=== PATIENT | male | born 1990 | race Caucasian/White ===

== ENCOUNTER 2019-12-23 00:07 | Emergency (ER) | payer OTHER ==
[2019-12-23 00:13] VITALS: BMI 25.0
[2019-12-23 00:28] VITALS: BP 121/82; PULSE 77; TEMP 99.1
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
== END 2019-12-23 00:43 | disposition home or self-care (01) ==
LOC: FER 00:07
DX: S60.414A Abrasion of right ring finger, initial encounter (principal)
CPT/HCPCS: 99282-25

== ENCOUNTER 2021-04-11 14:30 | Emergency (ER) | payer OTHER ==
[2021-04-11] MEDS ORDERED: IBUPROFEN 600 MG TABLET (FP) PO ONE ×2 (15:13→15:28)
[2021-04-11 15:40] VITALS: BP 130/83; PULSE 83; TEMP 98.1; BMI 26.6
== END 2021-04-11 16:47 | disposition home or self-care (01) ==
LOC: FER 14:30
DX: S62.525A Nondisplaced fracture of distal phalanx of left thumb, initial encounter for closed fracture (principal); Y35.811A Legal intervention involving manhandling, law enforcement official injured, initial encounter
CPT/HCPCS: 73140-TC-LT-FY; 99283-25

== ENCOUNTER 2021-05-15 15:18 | Emergency (ER) | payer OTHER ==
[2021-05-15 15:27] VITALS: BP 132/85; PULSE 98; TEMP 99; BMI 26.6
== END 2021-05-15 16:07 | disposition home or self-care (01) ==
LOC: FER 15:18
DX: S80.211A Abrasion, right knee, initial encounter (principal); S80.212A Abrasion, left knee, initial encounter; S60.511A Abrasion of right hand, initial encounter; S60.212A Contusion of left wrist, initial encounter; W01.0XXA Fall on same level from slipping, tripping and stumbling without subsequent striking against object, initial encounter; Y35.891A Legal intervention involving other specified means, law enforcement official injured, initial encounter
CPT/HCPCS: 99281-25

== ENCOUNTER 2021-08-28 15:40 | Emergency (ER) | payer OTHER ==
[2021-08-28 16:03] VITALS: BMI 26.6
[2021-08-28] MEDS ORDERED: NAPROXEN 500 MG TABLET PO ONE (16:59)
[2021-08-28] MEDS ORDERED: NAPROXEN 500 MG TABLET ONE (17:05)
[2021-08-28 18:45] VITALS: BP 116/74; PULSE 72; TEMP 98.1
[2021-08-28 19:19] LABS: HIV INTERPRETATION NEGATIVE (NEGATIVE)
== END 2021-08-28 18:48 | disposition home or self-care (01) ==
LOC: FER 15:40
DX: S50.811A Abrasion of right forearm, initial encounter (principal); S50.812A Abrasion of left forearm, initial encounter; M25.511 Pain in right shoulder; Y04.8XXA Assault by other bodily force, initial encounter
CPT/HCPCS: 36415; 73030-TC-RT-FY; 87389; 99284-25

== ENCOUNTER 2022-03-19 14:35 | Emergency (ER) | payer OTHER ==
[2022-03-19 14:54] VITALS: BP 120/76; PULSE 72; RESP 18; TEMP 98; BMI 27.0
== END 2022-03-19 16:05 | disposition home or self-care (01) ==
LOC: FER 14:35
DX: M25.562 Pain in left knee (principal)
CPT/HCPCS: 99283-25

== ENCOUNTER 2022-04-02 14:10 | Emergency (ER) | payer OTHER ==
[2022-04-02 14:26] VITALS: BP 121/83; PULSE 83; RESP 18; TEMP 97.8; BMI 27.0
[2022-04-02] MEDS ORDERED: ACETAMINOPHEN 325 MG TABLET (FP) PO ONE (14:52)
[2022-04-02] MEDS ORDERED: ACETAMINOPHEN 325 MG TABLET (FP) ONE (14:57)
== END 2022-04-02 16:05 | disposition home or self-care (01) ==
LOC: FER 14:10
DX: S96.911A Strain of unspecified muscle and tendon at ankle and foot level, right foot, initial encounter (principal); M25.511 Pain in right shoulder; M79.642 Pain in left hand; Y30.XXXA Falling, jumping or pushed from a high place, undetermined intent, initial encounter
CPT/HCPCS: 73030-TC-RT-FY; 99283-25

== ENCOUNTER 2023-02-09 19:02 | Emergency (ER) | payer OTHER ==
[2023-02-09 19:07] VITALS: BP 135/83; PULSE 85; RESP 18; TEMP 98.1; BMI 25.8
[2023-02-09] MEDS ORDERED: BACITRACIN 0.9 GM PACKET TP ONE (19:38)
[2023-02-09] MEDS ORDERED: BACITRACIN ZINC 15 GM TUBE TOPICAL OINTMENT ONE (19:38)
== END 2023-02-09 19:40 | disposition home or self-care (01) ==
LOC: JERFT 19:02 → JER 19:02 → JERFT 19:40
DX: S11.93XA Puncture wound without foreign body of unspecified part of neck, initial encounter (principal); S60.511A Abrasion of right hand, initial encounter; Y04.0XXA Assault by unarmed brawl or fight, initial encounter
CPT/HCPCS: 99283-25

== ENCOUNTER 2024-02-02 00:10 | Emergency (ER) | payer OTHER ==
[2024-02-02 00:18] VITALS: BP 136/80; PULSE 113; RESP 20; TEMP 99.5; BMI 25.0
[2024-02-02 02:55] LABS: HIV INTERPRETATION NEGATIVE (NEGATIVE)
== END 2024-02-02 01:34 | disposition home or self-care (01) ==
LOC: JER 00:10
DX: Z77.21 Contact with and (suspected) exposure to potentially hazardous body fluids (principal)
CPT/HCPCS: 36415; 86705; 86706; 86803; 87340; 87389; 87517; 99283-25